=== PATIENT | female | born 1960 | race Caucasian/White ===

== ENCOUNTER 2020-11-27 14:00 | Emergency (ER) | payer BC, SELFPAY ==
--- NOTE | ~2020-11-27 | CT_ITS ---
EXAMINATION: CT abdomen pelvis w con DATE: 11/27/2020 19:21 INDICATION: Hematochezia. TECHNIQUE: Computed tomography (CT) of the abdomen and pelvis was performed with 100 mL Omnipaque 350 intravenous contrast. Automated exposure control and iterative reconstruction technique were employe d. The dose-length product was 623.18 mGy-cm. COMPARISON: CT abdomen and pelvis 08/26/2017 FINDINGS: The visualized portions of the lung bases demonstrate minimal atelectasis on the left. No p leural effusion. The heart size is normal. No pericardial effusion. The liver, gallbladder, spleen, p ancreas, adrenal glands, and kidneys are normal. There are changes of ventral hernia repair. There is fat stranding around an epiploic appendage of sigmoid colon, consistent with epiploic appendagitis. There is wall thickening of the descending colon, consistent with colitis. The appendix is normal. Th ere are no dilated loops of bowel. There are no pathologically enlarged lymph nodes. There is no free intraperitoneal fluid. There is mild lumbar spondylosis. IMPRESSION: 1. Colitis involving the descending colon, which may be infectious colitis or ischemic colitis (such as from a hypotensive episode). 2. Age-indeterminate epiploic appendagitis of the sigmoid colon, new from 08/26/17. Reviewed, dictated and finalized at location A. IMPRESSION: 1. Colitis involving the descending colon, which may be infectious colitis or i schemic colitis (such as from a hypotensive episode). 2. Age-indeterminate epiploic appendagitis of the sigmoid colon, new from .
[2020-11-27 14:26] VITALS: BP 148/97; PULSE 89; RESP 16; TEMP 36.8; O2SAT 98
[2020-11-27 15:02] LABS: Basophils Absolute Auto 0.1 K/mm3 (0.0-0.1); Basophils Percent Auto 0.7 % (0.2-1.2); Eosinophils Absolute Auto 0.2 K/mm3 (0-0.3); Eosinophils Percent Auto 1.9 % (0-4.4); Hematocrit 45.7 % (37.0-47.0); Hemoglobin 15.5 g/dL (12.0-15.0); Immature Granulocyte Absolute 0.03 K/mm3 (0.00-0.031); Immature Granulocyte Percent A 0.3 % (0-0.5); Lymphocytes Absolute Auto 2.53 K/mm3 (0.9-3.2); Lymphocytes Percent Auto 26.5 % (18.3-44.2); Mean Corpuscular HGB Conc 33.9 g/dl (32-36); Mean Corpuscular Hemoglobin 29.1 pg (26-34); Mean Corpuscular Volume 85.9 fl (80-100); Mean Platelet Volume 10.4 fl (7.4-10.4); Monocytes Absolute Auto 0.7 K/mm3 (0.1-0.6); Monocytes Percent Auto 7.4 % (2.6-8.5); Neutrophils Percent Auto 63.2 % (45.5-73.1); Platelet Count Result 239 k/mm3 (150-375); Red Blood Count 5.32 M/mm3 (4.2-5.4); Red Cell Distribution Width 12.9 % (11.5-14.5); White Blood Count 9.5 K/mm3 (4.5-10.0)
[2020-11-27 15:13] LABS: INR 0.9; Prothrombin Time 11.8 Seconds (11.1-14.7)
[2020-11-27 15:21] LABS: Alanine Aminotransferase 31 U/L (4-35); Albumin Level 4.4 g/dL (3.5-5.1); Alkaline Phosphatase 85 U/L (38-126); Anion Gap 8 mmol/L (8-16); Aspartate Amino Transferase 28 U/L (14-36); Bilirubin,Total 0.5 mg/dL (0.2-1.3); Blood Urea Nitrogen 7 mg/dL (7-17); Calcium 9.5 mg/dL (8.4-10.2); Carbon Dioxide 27 mmol/L (22-30); Chloride 106 mmol/L (98-107); Estimated CRCL calculation 100 ml/min; Estimated Glomerular Filt Rate > 60; Glucose 92 mg/dL (65-110); Potassium 3.8 mmol/L (3.4-5.0); Sodium 141 mmol/L (137-145)
[2020-11-27 18:25] VITALS: BP 133/81; BP 136/91; PULSE 69; PULSE 74
[2020-11-27 18:26] VITALS: BP 139/89; PULSE 82
--- NOTE | 2020-11-27 18:31 | ED.GENADULT ---
HPI - General Adult General Chief complaint: GI Bleed <Radha Field PA-C - Last Filed: 11/27/20 20:37> Stated complaint: bloody stool <INOCENTE Fletcher Last Filed: 11/27/20 20:37> Time Seen by Provider: 11/27/20 18:30 <Radha Field PA-C - Last Filed: 11/27/20 20:37> Source: patient <INOCENTE Fletcher Last Filed: 11/27/20 20:37> Mode of arrival: ambulatory <Radha Field PA-C - Last Filed: 11/27/20 20:37> Limitations: no limitations <Radha Field PA-C - Last Filed: 11/27/20 20:37> History of Present Illness HPI narrative: Patient began having abdominal pain last week and was seen at another facility for possible appendicitis. She had a CAT scan of her abdomen at that time that was negative for appendicitis but she was told that there was decreased blood flow through the artery to her colon . She was treated with 5-day course of Augmentin and a baby aspirin a day. This morning she began passing bright red blood, no stool. Her last normal stool was Thursday. She continues to have cramping periodically. No fever. Prior to today she had been eating a normal diet. <Radha Field PA-C - Last Filed: 11/27/20 20:37> Onset (ago): hour(s) <Radha Field PA-C - Last Filed: 11/27/20 20:37> Severity: mild <INOCENTE Fletcher Last Filed: 11/27/20 20:37> Quality: other (cramping) <INOCENTE Fletcher Last Filed: 11/27/20 20:37> Pain Consistency: intermittent <INOCENTE Fletcher Last Filed: 11/27/20 20:37> Relieving factors: none <INOCENTE Fletcher Last Filed: 11/27/20 20:37> Exacerbating factors: none <Radha Field PA-C - Last Filed: 11/27/20 20:37> Associated symptoms: denies other symptoms <Radha Field PA-C - Last Filed: 11/27/20 20:37> Related Data Home medications: Home Medications Medication Instructions Recorded Confirmed citalopram mg 11/27/20 lisinopril 11/27/20 omeprazole 11/27/20 rosuvastatin mg 11/27/20 <Radha Field PA-C - Last Filed: 11/27/20 20:37> Allergies/adverse reactions: Allergies Allergy/AdvReac Type Severity Reaction Status Date / Time morphine Allergy Unknown Stopped Verified 11/27/20 19:04 Breathing <Radha Field PA-C - Last Filed: 11/27/20 20:37> Review of Systems Review of Systems: All systems reviewed & are unremarkable except as noted in HPI and below <Radha Field PA-C - Last Filed: 11/27/20 20:37> [facility] Past Medical History Medical History: Medical History (Updated 11/27/20 @ 20:32 by Radha Field PA-C) Chronic GERD Depression Hyperlipidemia Hypertension <Radha Field PA-C - Last Filed: 11/27/20 20:37> Family History Family History: Family History (Updated 11/27/20 @ 18:53 by Radha Field PA-C) Mother Colon polyp Diverticulitis <Radha Field PA-C - Last Filed: 11/27/20 20:37> Social History Social History: Social History (Updated 11/27/20 @ 18:53 by Radha Field PA-C) Smoking status: Never smoker Alcohol intake: never Substance use: never Living arrangements: with family <Radha Field PA-C - Last Filed: 11/27/20 20:37> Exam Const: General: no acute distress and alert <Radha Field PA-C - Last Filed: 11/27/20 20:37> Orientation/consciousness: patient oriented x3 <Radha Field PA-C - Last Filed: 11/27/20 20:37> Eyes: Pupils: Equal, round and reactive pupils present <Radha Field PA-C - Last Filed: 11/27/20 20:37> Resp: Effort & Inspection: normal respiratory effort <Radha Field PA-C - Last Filed: 11/27/20 20:37> Auscultation: clear to auscultation bilaterally <Radha Field PA-C - Last Filed: 11/27/20 20:37> Cardio: Rate: regular rate <INOCENTE Fletcher Last Filed: 11/27/20 20:37> Rhythm: regular rhythm <INOCENTE Fletcher Last Filed: 11/27/20 20:37> GI: GI Palp: Yes Soft to palpation an
[2020-11-27 18:48] VITALS: BP 145/79; PULSE 79; RESP 18; TEMP 36.9; O2SAT 95
[2020-11-27] MEDS: SODIUM CHLORIDE 0.9% IV 1,000 ML 999 ML IV CONT (18:59)
--- NOTE | 2020-11-27 19:30 | PC.NURSE ---
Assumed care of pt at this time. Pt alert and upright on stretcher, family at bedside. Pt updated on POC.
[2020-11-27 19:40] VITALS: BP 145/93; PULSE 71; RESP 18; O2SAT 95
[2020-11-27 20:48] VITALS: BP 138/79; PULSE 72; RESP 16; O2SAT 100
== END 2020-11-27 20:50 | disposition home or self-care (01) ==
PROVIDERS: Emergency Provider Emergency Medicine
DX: K52.9 Noninfective gastroenteritis and colitis, unspecified (principal); K62.5 Hemorrhage of anus and rectum; F32.9 Major depressive disorder, single episode, unspecified; E78.5 Hyperlipidemia, unspecified; I10 Essential (primary) hypertension; Z87.19 Personal history of other diseases of the digestive system
CPT/HCPCS: 36415; 74177; 80053; 85025; 85610; 85730; 86850; 86900; 86901; 96360; 99284; J7030; Q9967